=== PATIENT | female | born 1995 | race Caucasian/White ===

== ENCOUNTER 2018-12-23 18:31 | Observation (INO) ==
--- NOTE | 2018-12-23 20:49 | Internal Med History&Physical ---
Date of Encounter: 12/23/18 Time of Encounter: 20:50 Internal Medicine - H&P: HPI Chief complaint: Drug overdose Admitted From: Hospital to Hospital Transfer Plans for Post Hospital Care: Home History of present illness: Ms. Sloan is a 23 year old female Patient initially presented to [facility] emergency department for drug overdose. Details are not available, but as per nurse the patient was found on her neighbor's porch unresponsive. She was brought in by an ambulance. According to documentation, patient was very combative, spitting on security officers and attempted to bite and punch staff. Nursing staff was able to establish an IV to obtain blood work. She was placed in restraints and given sedating medicines to help control her behavioral outbursts. She does not answering questions, but maintaining her airway. [facility] emergency department vital signs: Temperature 98.3, pulse 106, respiratory rate 20, blood pressure 119/81, O2 saturation 97% on room air CBC: White count 12.5, hemoglobin 12.3, platelets 289. BMP unremarkable Troponin undetectable Urinalysis negative for infection Urine test negative Urine tox screen positive for opiates, phencyclidine, amphetamines, benzodiazepines, marijuana. Blood alcohol level undetectable Chest x-ray normal, lungs are clear EKG was performed [facility], but physical copy not available upon transfer. The emergency department documentation states: Sinus tachycardia, rate 103, CO interval 15 ms, QRS 81 ms, QTC 369 ms. No acute ischemic changes. In the [facility] emergency department patient initially presented demonstrating combative behavior. She was given Geodon, and lorazepam. She was transferred to [facility] for further management. Upon my evaluation, patient is resting seemingly comfortably in hospital bed in no acute distress. She does not wake to questions, and only briefly opens her eyes to sternal rub. Vital signs are stable and she is maintaining her airway. Review of systems could not be performed. She is presumed full code. Past Med Surg Social Fam HX - Past Medical History Medical history: no medical history Psychiatric history: anxiety - Past Surgical History Additional surgical history: C/S x2 - Social History Smoking Status: Current every day smoker Smokeless Tobacco Status: No Alcohol use: none Drug use: opiates, methamphetamine, IV Drug Use, prescription drug abuse, other Internal Medicine - H&P: Meds Dicyclomine [Bentyl] 10 mg PO QID PRN #20 capsule 11/16/18 [Rx] Ibuprofen [Motrin] 800 mg PO Q8HR #20 tablet 11/16/18 [Rx] Oxazepam [Serax] 15 mg PO TID 7 Days #20 capsule 11/16/18 [Rx] Promethazine [Phenergan] 25 mg PO Q6HR #20 tablet 11/16/18 [Rx] Sulfamethoxazole/Trimeth DS [Bactrim DS] 1 each PO BID #14 tablet 11/16/18 [Rx] Allergy/AdvReac Type Severity Reaction Status Date / Time No Known Allergies Allergy Verified 11/16/18 16:23 ROS unobtainable: due to mental status - Constitutional General appearance: Present: no acute distress Exam: Patient currently sedated and does not answer questions, does not cooperate with exam. - Head Head exam: Present: normal inspection - Eye Additional comments: Pinpoint pupils bilaterally, nonreactive - ENT ENT exam: Present: mucous membranes dry - Respiratory Respiratory exam: Present: CTAB. Absent: accessory muscle use, chest wall tenderness, rales, respiratory distress, rhonchi, wheezes - Cardiovascular Cardiovascular exam: Present: RRR. Absent: diastolic murmur, systolic murmur - GI/Abdominal GI/Abdominal exam: Present: normal bowel sounds, soft. Absent: tenderness - Extremities Exam Extremities exam: Present: warm, radial pulses palpable and symmetrical. Absent: calf tenderness, pedal edema, tenderness Additional comments: Small area on left ankle appears to be a burn some kind. Left upper extremity cubital area demonstrates what appears to be an injection site and track diaz. - Neurological Exam Additional comments: Unable to assess - Skin Skin exam: Present: dry, normal color, warm - Assessment and Plan (1) Polysubstance abuse Current Visit: No Status: Acute Assessment and plan: Urine drug screen positive for opiates, phencyclidine, amphetamines, benzodiazepines and marijuana. Patient was initially combative in the emergency department, but after given sedation this has improved. Cardiac telemetry Bedside patient's sitter Continue soft restraints in the upper extremities IV fluid hydration Repeat a.m. labs Continue to monitor (2) DVT prophylaxis Current Visit: Yes Status: Acute Assessment and plan: SCDs - Time Spent With Patient Total time spent is greater than 50% in coordination of care (as documented) at patient's floor/unit and/or counseling patient:
[2018-12-23] MEDS ORDERED: Naloxone 0.4 MG/ML INJ IVP PRN (21:06)
[2018-12-23] MEDS ORDERED: 0.9 % Sodium Chloride 1,000 ML IVC SCH (21:15)
[2018-12-23] MEDS: 0.9 % Sodium Chloride 1,000 ML IVC SCH (21:24)
[2018-12-24 01:10] LABS: Hemoglobin 11.4 g/dL (11.5-15.4); Mean Corpuscular HGB Conc 32.6 g/dL (31.6-35.5); Mean Corpuscular Hemoglobin 27.2 pg (28.0-33.3); Mean Corpuscular Volume 83.5 fL (83.0-100.0); Mean Platelet Volume 11.3 fL (9.4-12.4); Platelet Count 268 K/mcL (140-400); Red Blood Count 4.19 M/mcL (3.82-4.97); Red Cell Distribution Width 12.7 % (11.5-14.5); White Blood Count 11.4 K/mcL (4.3-11.1)
[2018-12-24 01:32] LABS: Alanine Aminotransferase 10 Units/L (7-52); Albumin 3.8 g/dL (3.5-5.7); Albumin/Globulin Ratio 1.7 (1.1-2.2); Alkaline Phosphatase 57 Units/L (34-104); Aspartate Amino Transferase 20 Units/L (13-39); BUN/Creatinine Ratio 20 (6-26); Bilirubin,Total 0.7 mg/dL (0.3-1.0); Blood Urea Nitrogen 10 mg/dL (6-20); Carbon Dioxide 23 mEq/L (23-29); Chloride 111 mEq/L (98-107); Globulin 2.3 g/dL (2.4-3.5); Glucose 98 mg/dL (70-105); Osmolality,Calculated 291 (280-300); Phosphorous 4.1 mg/dL (2.7-4.5); Potassium 3.6 mEq/L (3.5-5.1); Sodium 141 mEq/L (136-145); Total Protein 6.1 g/dL (6.4-8.9); eGFR For African Americans > 60 (> 60); eGFR For Non-African Americans > 60 (> 60)
[2018-12-24] MEDS: 0.9 % Sodium Chloride 1,000 ML IVC SCH (05:05)
--- NOTE | 2018-12-24 08:41 | Internal Med Progress Note ---
Hospitalist Progress Note - Encounter Date of Encounter: 12/24/18 Time of Encounter: 08:41 - Subjective Interval History: Patient seen and examined this morning at bedside. No acute overnight events. Denies any chest pain or difficulty breathing palpitation or lightheadedness or dizziness. Denies any abdominal pain diarrhea or urinary difficulties. Admits to using heroin and amphetamines IV in the past. Mentioned she took 3 tablets of Klonopin. Denies any fevers or chills. - Exam Vitals: Temp Pulse Resp BP Pulse Ox 98.4 F 91 18 117/73 100 12/24/18 06:34 12/24/18 06:34 12/24/18 06:34 12/24/18 06:34 12/24/18 06:34 Exam: General: In no acute distress. Respiratory exam: CTAB. no accessory muscle use, rales, rhonchi, wheezes Cardiovascular exam: RRR, +S1, +S2. no murmur, gallop, rubs. GI/Abdominal exam: Non-tender, Non-distended, normal bowel sounds, soft, no peritoneal signs. Extremities exam: no pedal edema, pulses palpable in b/l lower extremities. no calf tenderness Neurological exam: CN II-XII intact, AO X3, no focal deficits. Skin exam: skin track korey on lt elbow. - Assessment and Plan (1) Polysubstance abuse Current Visit: No Status: Acute (2) DVT prophylaxis Current Visit: Yes Status: Acute - Summary of Assessment and Plan Summary of Assessment and Plan: Polysubstance abuse - Denies any suicidal ideation. Not altered or under sedation. Discussed risk of IV drug use. Discussed risk of seizure with clonopine abuse and cardiac implication of amphetamine. Patient understands the risk and does not want to consider rehab at this point. Discontinue sitter - admitts to using 3 clonipine before she was found. Likely underlying cause of unresponsiveness. - Urine drug screen positive for opiates, phencyclidine, amphetamines, benzodiazepines and marijuana. - DC soft restraints. c/w IV fluid hydration - Monitor for tele for next 24 hr - plan for DC tomorrow Leukocytosis - No signs of infection - Monitor off antibiotics DVT prophylaxis - SCDs - Time Spent with Patient Total time spent is greater than 50% in coordination of care (as documented) at patient's floor/unit and/or counseling patient: Internal Medicine: Result - Labs CBC & Chem 7: 12/24/18 00:25 12/24/18 00:25 Labs: Short CBC 12/24/18 Range/Units 00:25 WBC 11.4 H (4.3-11.1) K/mcL Hgb 11.4 L (11.5-15.4) g/dL Hct 35.0 L (35.3-44.9) % Plt Count 268 (140-400) K/mcL BMP 12/24/18 00:25 Sodium 141 Potassium 3.6 Chloride 111 H Carbon Dioxide 23 BUN 10 Creatinine 0.51 L Glucose 98 Calcium 9.0 Liver Function 12/24/18 Range/Units 00:25 Total Bilirubin 0.7 (0.3-1.0) mg/dL AST 20 (13-39) Units/L ALT 10 (7-52) Units/L Alkaline Phosphatase 57 (34-104) Units/L Albumin 3.8 (3.5-5.7) g/dL Consult Discharge Plan - Plan Referrals: NONE,PCP [Primary Care Provider] -
[2018-12-24 16:21] VITALS: BP 139/97
[2018-12-24] MEDS ORDERED: cloNIDine HCl 0.1 MG TABLET PO SCH (17:04)
== END 2018-12-24 17:45 | disposition left against medical advice (07) ==
LOC: 2NNU → SUATTDRO 20:29
PROVIDERS: ADMIT Internal Medicine; ATTEND Internal Medicine